=== PATIENT | female | born 1955 | race Caucasian/White ===

== ENCOUNTER 2018-01-09 10:38 | Emergency (ER) | payer MEDICARE, OTHER ==
[~2018-01-09] VITALS: Ht 167.6 cm; Wt 81.7 kg
[2018-01-09] MEDS ORDERED: SERT100 PO (10:57)
[2018-01-09] MEDS ORDERED: ASPI81CH PO (10:57)
[2018-01-09] MEDS ORDERED: METO25 PO (10:57)
[2018-01-09] MEDS ORDERED: LOSA50 PO (10:58)
[2018-01-09] MEDS ORDERED: TEMA7.5 PO (10:58)
[2018-01-09] MEDS ORDERED: TEMA30 PO (10:58)
[2018-01-09] MEDS ORDERED: Lopressor 25 mg25 MG PO (10:59)
[2018-01-09] MEDS ORDERED: Protonix40 MG PO (11:00)
[2018-01-09] MEDS ORDERED: CLARITIN10 MG PO (11:00)
[2018-01-09] MEDS ORDERED: HYDR1TAB94 PO (11:00)
[2018-01-09] MEDS ORDERED: CLOP75 PO (11:00)
[2018-01-09] MEDS ORDERED: HYDPAM50 PO (11:01)
[2018-01-09] MEDS ORDERED: Percocet 5-3251 EACH PO (11:01)
[2018-01-09] MEDS ORDERED: ZOLM5 PO (11:02)
[2018-01-09] MEDS ORDERED: LIDO5TO TOP (11:02)
[2018-01-09] MEDS ORDERED: TRIA15CR3 TOP (11:03)
[2018-01-10] MEDS ORDERED: ALBU90OI INH (13:52)
[2018-01-10] MEDS ORDERED: Augmentin 875-1 EACH PO (13:52)
== END 2018-01-09 12:48 | disposition home or self-care (01) ==
LOC: ER 10:38
DX: G43.909 Migraine, unspecified, not intractable, without status migrainosus (principal); Z88.2 Allergy status to sulfonamides; Z88.8 Allergy status to other drugs, medicaments and biological substances; Z79.899 Other long term (current) drug therapy; Z79.82 Long term (current) use of aspirin
CPT/HCPCS: 96374; 96375; 99284-25; J1200; J1885; J2405; J3010

== ENCOUNTER 2018-01-10 11:54 | Emergency (ER) | payer MEDICARE, OTHER ==
[~2018-01-10] VITALS: Ht 167.6 cm; Wt 86.2 kg
[~2018-01-10 11:54] MED LIST: ASPI81CH PO; CLARITIN10 MG PO; CLOP75 PO; HYDPAM50 PO; HYDR1TAB94 PO; LIDO5TO TOP; LOSA50 PO; Lopressor 25 mg25 MG PO; METO25 PO; Percocet 5-3251 EACH PO; Protonix40 MG PO; SERT100 PO; TEMA30 PO; TEMA7.5 PO; TRIA15CR3 TOP; ZOLM5 PO
[2018-01-10] MEDS ORDERED: ALBU90OI INH (13:52)
[2018-01-10] MEDS ORDERED: Augmentin 875-1 EACH PO (13:52)
== END 2018-01-10 14:31 | disposition home or self-care (01) ==
LOC: ER 11:54
DX: J06.9 Acute upper respiratory infection, unspecified (principal); J98.01 Acute bronchospasm; R04.0 Epistaxis; G43.909 Migraine, unspecified, not intractable, without status migrainosus; Z88.2 Allergy status to sulfonamides; Z88.8 Allergy status to other drugs, medicaments and biological substances; Z79.899 Other long term (current) drug therapy; Z79.82 Long term (current) use of aspirin
CPT/HCPCS: 71046; 94640; 96361; 96374; 96375; 99284-25; J1100; J1200; J1630; J1885; J2405; J3010; J7030